=== PATIENT | male | born 1995 | race Caucasian/White ===

== ENCOUNTER 2018-05-14 19:52 | Emergency (ER) | payer MEDICAID, SELFPAY ==
[2018-05-14 19:54] VITALS: BP 133/76; PULSE 75; RESP 18; TEMP 36.6; O2SAT 99; BMI 25.2
--- NOTE | 2018-05-14 20:11 | RAD_ITS ---
STUDY: X-RAY - UNILATERAL RIBS ( LEFT ) WITH CHEST REASON FOR EXAM: Male, 22 years old. Lower left rib pain. TECHNIQUE - RIBS: 4 view(s) of the ribs. TECHNIQUE - CHEST: Single AP portable view of the chest. COMPARISON: None. FINDINGS - RIBS: Normal visualized ribs without a demonstrated fracture. FINDINGS - CHEST: The lungs are clear and expanded. There is no demonstrated pleural abnormality. Normal size heart. Normal mediastinum and tiana. Normal visualized pulmonary arteries. Normal visualized aortic arch and descending thoracic aorta. Normal visualized thoracic spine. Normal visualized ribs, clavicles, and shoulders. There is no demonstrated abnormality of the visualized soft tissue structures of the upper abdomen. RAD/Ribs Uni Min 3V w/PA Chest IMPRESSION: RIBS: No evidence of acute rib fracture. CHEST: No evidence of acute cardiopulmonary process. Electronically Signed: Jair Lyons DO at 21:04 EDT , Service support ,
--- NOTE | 2018-05-14 20:26 | RAD_ITS ---
STUDY: X-RAY - LEFT KNEE REASON FOR EXAM: Male, 22 years old. Twisted knee. TECHNIQUE: 3 view(s) of the knee. COMPARISON: None. FINDINGS: There is a compression deformity along the medial femoral condyle concerning for pivot shift injury and ACL injury. Normal visualized proximal tibia and fibula. Normal proximal tibiofibular articulation. Normal medial femorotibial compartment. Normal lateral femorotibial compartment. Normal patellofemoral articulation. The soft tissue structures are unremarkable. RAD/Knee 3 Views IMPRESSION: Findings consistent with compression fracture along the medial femoral condyle concerning for pubic shift injury and ACL injury, clinically correlate. Electronically Signed: Jair Lyons DO at 20:54 EDT , Service support ,
--- NOTE | 2018-05-14 21:13 | ED.DCSUM_ITS ---
- ER Visit Summary Date of Service: 05/14/18 Chief Complaint: [Injury left knee] History of Present Illness: The patient is a 22 M [presents the emergency department complaint of an injury to his left knee that occurred approximately 1 PM today. Patient was playing flag football when he collided with another individual injuring his left knee. Patient states he initially felt a pop and could not bear weight. Patient continues to have significant pain and cannot bear weight. Patient also states that he has some discomfort in his left ribs with deep breath and certain movements.] Physical Examination: [HEENT-PERRLA, EOMI. Cranial nerves II through XII grossly intact. TMs clear. Mucous membranes moist. No adenopathy. Cardiovascular-regular rate and rhythm without murmur or ectopy Lungs-clear to auscultation, chest wall stable without crepitus or subcu emphysema. Patient has tenderness over the left anterior chest wall and mid axillary line lower ribs. Abdomen-normoactive bowel sounds, soft, nontender, no rebound or rigidity, no peritoneal signs. Extremities-intact ?4, normal range of motion, normal pulses. Left knee- patient has a small effusion noted. Patient has limited range of motion in flexion extension secondary to pain. Patient does not tolerate ligamentous exam secondary to pain and swelling. He is neurovascular intact distally. Patient does have tenderness over the medial lateral joint lines. Test Results: [X-rays of the left ribs were obtained which were negative for fracture or pneumothorax. Patient also had x-rays of the left knee which showed a compression of the medial femoral condyle and concern for ACL injury.] Emergency Department Course and Treatment: [Patient was placed in a knee immobilizer and given crutches.] Treatment Plan: [I discussed case with Dr. Larry Franks who will see patient in the office. Patient will be given a prescription for [place]. Patient instructed to ice and elevate the extremity. Patient given work restrictions.] Disposition: [Discharged home in stable condition] Impression: [Left knee fracture with possible internal derangement] This note was generated with [employer] dictation software. It may contain incorrect words, spelling, and punctuation that were not noted in review of the chart prior to signing ED Disposition - Plan for ED Patient: Chief Complaint: Lower Extremity Injury Referrals: Care Physician,No Primary [Primary Care Provider] -
--- NOTE | 2018-05-14 21:13 | ED.DEP ---
ED Disposition - Plan for ED Patient: Chief Complaint: Lower Extremity Injury Instructions: ED Fx Knee Prescriptions: Hydrocodone/Acetaminophen [Dequincy 5-325 Tablet] 1 - 2 ea PO 4X/DAY PRN PRN 5 Days #20 tab PRN Reason: Pain Referrals: Care Physician,No Primary [Primary Care Provider] - Larry Franks DO [STAFF PHYSICIAN] - 3-5 Days
[2018-05-14 21:28] VITALS: PULSE 84; RESP 16; O2SAT 99
--- NOTE | 2018-05-14 21:28 | ED.RN ---
THIS NURSE REVIEWED D/C INSTRUCTIONS WITH PT. PT VERBALIZED UNDERSTANDING OF INSTRUCTIONS. PT DECLINES CRUTCHES. PT DENIES FURTHER NEEDS OR QUESTIONS AT THIS TIME.
== END 2018-05-14 21:29 | disposition home or self-care (01) ==
PROVIDERS: Emergency Provider Emergency Medicine
DX: S89.92XA Unspecified injury of left lower leg, initial encounter (principal); S72.432A Displaced fracture of medial condyle of left femur, initial encounter for closed fracture; W03.XXXA Other fall on same level due to collision with another person, initial encounter; Y93.62 Activity, american flag or touch football; Y92.89 Other specified places as the place of occurrence of the external cause; Y99.8 Other external cause status
CPT/HCPCS: 71101; 73562; 99283

== ENCOUNTER 2018-06-05 08:34 | Day surgery (SDC) | payer MEDICAID, SELFPAY ==
[2018-06-05] VITALS (7 sets, daily range): BP systolic 126–163; BP diastolic 67–103; PULSE 63–78; RESP 12–18; TEMP 36.6–37.3; O2SAT 95–100; BMI 26.6
[2018-06-05] MEDS: Cefazolin 2 GM in 0.9% Normal Saline 100 ML IV (10:45)
[2018-06-05] MEDS: Bupiv/Epi 0.5% Mpf 30 ML Vial (11:15)
--- NOTE | 2018-06-05 12:35 | PCM.IMDPSTOP ---
Immediate Post-Op Note Date of Procedure: 06/05/18 Primary Surgeon/Physician: Rikki Jarquin agricultural economics teacher: Larry Franks agricultural economics teacher: Phillip Mena Pre-Operative Diagnosis: Left knee ACL, medial and lateral meniscal tears Post-Operative Diagnosis: same Surgery/Procedure Performed:: D & O Arthroscopy with medial meniscal repair, partial lateral meneiscectomy and ACL reconstruction with 9 mm tibialis anterior allograft Description of Surgical Findings:: see note Estimated Blood Loss: minimal Specimen's removed: none Type of Anesthesia:: General/Regional ASA Class: ASA1 Normal Healthy Patient - Admit VTE Documentation VTE Present on Admission: No VTE Mechan Device Prophylaxis: SCD's, Thigh High MATTEO Hose VTE Pharm Prophylaxis ordered?: No Reason prophylaxis not ordered:: Treatment Not Indicated
[2018-06-05] MEDS: HYDROcodone Bitartrate/Apap 5/325 Tablet PO (14:30)
== END 2018-06-05 14:54 | disposition home or self-care (01) ==
LOC: SDC 08:36 → AC 08:37
PROVIDERS: Visit Provider Orthopaedic Surgery
PROC: (CPT 29888; principal; 2018-06-05 10:10)
DX: S83.512A Sprain of anterior cruciate ligament of left knee, initial encounter (principal); S83.232A Complex tear of medial meniscus, current injury, left knee, initial encounter; S83.282A Other tear of lateral meniscus, current injury, left knee, initial encounter; S83.411A Sprain of medial collateral ligament of right knee, initial encounter; F12.20 Cannabis dependence, uncomplicated; Z87.891 Personal history of nicotine dependence; X58.XXXA Exposure to other specified factors, initial encounter; Y93.9 Activity, unspecified; Y92.89 Other specified places as the place of occurrence of the external cause; Y99.9 Unspecified external cause status
CPT/HCPCS: 01400; 29880; 29888; 64450; J7120; J2405

== ENCOUNTER 2019-04-10 14:50 | Emergency (ER) | payer MEDICAID, SELFPAY ==
[2019-04-10 14:51] VITALS: BP 146/83; PULSE 83; RESP 16; TEMP 36.7; O2SAT 99; BMI 26.5
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
--- NOTE | 2019-04-10 15:25 | RAD_ITS ---
STUDY: X-RAY - FACIAL BONES REASON FOR STUDY: Male, 23 years old. Laceration. Possible foreign body. TECHNIQUE: 3 view(s) of the facial bones. COMPARISON: None. FINDINGS: Normal bilateral frontozygomatic and zygomatic-temporal arches. Normal bilateral medial and inferior orbital villarreal. Normal bilateral orbits. Normal visualized nasal bones. Normal anterior nasal spine. The remaining visualized osseous structures are normal. Normal visualized paranasal sinuses. RAD/Facial Bones min 3 Views IMPRESSION: Normal x-ray examination of the facial bones. Electronically Signed: Gregg Vaughn, at 15:40 EDT , Service support ,
[2019-04-10] MEDS: BACITRACIN 15 GM Tube 1 APPLIC TOPICAL (17:04)
== END 2019-04-10 17:07 | disposition home or self-care (01) ==
PROVIDERS: Emergency Provider Emergency Medicine
DX: S11.91XA Laceration without foreign body of unspecified part of neck, initial encounter (principal); S01.81XA Laceration without foreign body of other part of head, initial encounter; J02.9 Acute pharyngitis, unspecified; V89.2XXA Person injured in unspecified motor-vehicle accident, traffic, initial encounter; Y93.9 Activity, unspecified; Y92.9 Unspecified place or not applicable
CPT/HCPCS: 12001; 12011; 70150; 99283